=== PATIENT | male | born 1990 | race Caucasian/White ===

== ENCOUNTER 2018-02-20 15:09 | Inpatient (IN) | payer OTHER ==
[~2018-02-20] VITALS: Ht 172.7 cm; Wt 72.6 kg
--- NOTE | 2018-02-20 19:25 | NUR ---
INTAKE ASSESSMENT BP:140/87, HR:83, RR:18, SpO2: 96%, T:98.1 Pt is in stable condition and able to be admitted on the unit. Unit protocols regarding medications and vital signs every 4 hours were explained. Pt verbalized understanding. Will continue admission upon arrival on the unit.
[2018-02-20] MEDS ORDERED: LOPERAMIDE HCL 2 MG CAPSULE PO PRN ×2 (19:30)
[2018-02-20] MEDS ORDERED: ACETAMINOPHEN 325 MG TABLET PO PRN (19:30)
[2018-02-20] MEDS ORDERED: LORAZEPAM 1 MG TABLET PO PRN ×2 (19:30)
[2018-02-20] MEDS ORDERED: THIAMINE HCL 200 MG/2 ML VIAL IM ONE (19:30)
[2018-02-20] MEDS ORDERED: MAGNESIUM HYDROXIDE 30 ML LIQUID UDC PO PRN (19:30)
[2018-02-20] MEDS ORDERED: ONDANSETRON 4 MG/2 ML VIAL IM PRN (19:30)
[2018-02-20] MEDS ORDERED: MIRALAX 17 GM POWD.PACK PO PRN (19:30)
[2018-02-20] MEDS ORDERED: DICYCLOMINE HCL 20 MG TABLET PO PRN (19:30)
[2018-02-20] MEDS ORDERED: MAG HYDROX/AL HYDROX/SIMETH 30 ML LIQUID UDC PO PRN (19:30)
[2018-02-20] MEDS ORDERED: LORAZEPAM 2 MG/1 ML VIAL IM PRN (19:30)
[2018-02-20] MEDS ORDERED: CLONIDINE HCL 0.1 MG TABLET PO PRN (19:30)
[2018-02-20] MEDS ORDERED: ONDANSETRON ODT 4 MG TAB.RAPDIS SL PRN (19:30)
[2018-02-20 20:29] LABS: *AMPHETAMINE, URINE NEGATIVE (NEGATIVE); *BARBITURATE, URINE NEGATIVE (NEGATIVE); *CANNABINOID, URINE POSITIVE (NEGATIVE); *COCCAINE, URINE POSITIVE (NEGATIVE); *OPIATE, URINE NEGATIVE (NEGATIVE); *PHENCYCLIDINE SCREEN,URINE NEGATIVE (NEGATIVE)
[2018-02-20] MEDS ORDERED: LORAZEPAM 1 MG TABLET PO SCH (21:00)
--- NOTE | 2018-02-20 21:00 | NUR ---
ADMISSION NOTE Pt arrived ambulatory from [facility] to the third floor accompanied by a BRUSHING MACHINE OPERATOR at 1934. Pt is a 27 year old male admitted on 02/20/18 for ETOH withdrawal. Pt is full code with NKA. He reports a PMHx of anxiety. He denies any seizures. He reports smoking cigarettes daily, 1/2 pack for 10 years. He reports having a PCP by the name of Dr. Diana Riojas. He did not bring any home medications and denies taking home medications. This is his first time in treatment. He reports he is unable to recall a time of sobriety and reports " I go to work sober, then I just drink after work." He states he is here because " I'm drinking too much, I keep blacking out." He describes his current use as: 1. ETOH (vodka) 100mL daily for 7 years at this rate. Last dose: " a couple drinks " on 02/19/18. 2. Cocaine- intermittently for a " few years." Last dose: unable to recall 3. Marijuana- "few hits" daily for 7 years. Last dose: " few hits" on 02/19/18. He describes his withdrawal symptoms from ETOH as " anxiety, nausea, sweats" Upon assessment, pt is alert and oriented x4, speech is clear and audible. Pt noted with anxiety, agitation, irritability, flushed face, sweats, restlessness, and tingling of bilateral hands. Heart rate regular. Denies chest pain or SOB. PERRLA, breathing is even and unlabored, lung sounds clear. Abdomen is soft and non-distended. Bowel sounds present in all quadrants, last BM 02/20/18. Pt reports that BM is regular. Pt's skin is warm, dry and intact. MD aware of pt's admission. Pt oriented to room and unit. Safety measures in place. Will continue to monitor. Addendum: 02/21/18 at 0140 by OSKAR ROPER RN ERROR IN CHARTING. Pt uses 500 mL of vodka daily for 7 years.
[2018-02-20 21:02] LABS: BASOPHILS # (AUTO) 0.1 K/uL (0.0-8.0); BASOPHILS % (AUTO) 0.7 % (0.0-2.0); EOSINOPHILS # (AUTO) 0.1 K/uL (0.0-0.7); EOSINOPHILS % (AUTO) 0.9 % (0.0-7.0); HEMATOCRIT 45.6 % (36.7-47.1); HEMOGLOBIN 16.3 g/dL (12.5-16.3); LYMPHOCYTES # (AUTO) 2.3 K/uL (20.0-40.0); LYMPHOCYTES % (AUTO) 25.4 % (20.5-51.5); MEAN CORPUSCULAR HGB CONC 36 g/dL (32.5-36.3); MEAN CORPUSCULAR VOLUME 89.5 fL (73.0-96.2); MONOCYTES # (AUTO) 0.7 K/uL (2.0-10.0); MONOCYTES % (AUTO) 7.1 % (0.0-11.0); NEUTROPHILS # (AUTO) 6.1 K/uL (1.8-8.9); NEUTROPHILS % (AUTO) 65.9 % (38.5-71.5); PLATELET COUNT (AUTO) 194 K/uL (152-348); RED BLOOD CELL COUNT(AUTO) 5.09 MIL/uL (4.06-5.63); WHITE BLOOD COUNT (AUTO) 9.2 K/uL (3.6-10.2)
[2018-02-20 21:18] LABS: ETHANOL < 3 MG/DL (0-0)
[2018-02-20 21:21] LABS: ALANINE AMINOTRANSFERASE 101 U/L (16-63); ALKALINE PHOSPHATASE 66 U/L (50-136); AMYLASE 65 U/L (25-115); ASPARTATE AMINOTRANSFERASE 46 U/L (15-37); BILIRUBIN,TOTAL 0.5 mg/dL (0.2-1.0); CARBON DIOXIDE 28 mmol/L (21-32); CHLORIDE 101 mmol/L (98-107); CREATININE 0.9 mg/dL (0.6-1.3); GLUCOSE 115 mg/dL (74-106); POTASSIUM 3.6 mmol/L (3.5-5.1); TOTAL PROTEIN, SERUM 8.6 g/dL (6.4-8.2); UREA NITROGEN, BLOOD 12 mg/dL (7-18)
--- NOTE | 2018-02-20 21:29 | NUR ---
ONE TIME ATIVAN Pt received one time order of Ativan 2mg. Breathing even and unlabored, will monitor effectiveness.
[2018-02-20 21:33] LABS: THYROID STIMULATING HORMONE 5.915 mIU/mL (0.358-3.740)
--- NOTE | 2018-02-20 22:29 | NUR ---
REASSESSMENT One time medication effective. Pt is lying in bed with eyes closed and is asleep. Breathing even and unlabored, safety measures in place. Will continue to monitor.
[2018-02-21] VITALS: BP 105/58
--- NOTE | 2018-02-21 04:00 | NUR ---
VITALS REFUSED 0400 vitals refused. CIWA deferred d/t pt lying in bed with eyes closed noted to be asleep. Breathing even and unlabored. Safety measures in place. Will monitor.
--- NOTE | 2018-02-21 07:12 | NUR ---
END OF SHIFT Pt is a 27 year old male admitted on 02/20/18 for ETOH withdrawal. He remains alert and oriented x4. He is scheduled to start a 4 day Ativan taper today. He was noted with anxiety, irritability, agitation, restlessness and flushed face during the shift. He received a one time order of Ativan 2 mg. He slept a total of 7 hrs, Intake: 500 mL, Void: x1, BM:0, CIWA:8 at 2030. Breathing even and unlabored, safety measures in place. Endorsed to AM shift.
--- NOTE | 2018-02-21 07:28 | NUR ---
Start of Shift Notes: Received patient in his room. Awake, alert and verbally responsive. Appears anxious, affect is flat. Patient is a 27 year old male admitted for ETOH withdrawal who will be starting his 4-day Ativan taper in AM. He denies S/I or H/I noted. Denies AV hallucinations. Educated patient on his current plan of care for the day and his medication regimen. Encouraged oral fluid intake and encouraged group participation to learn new skills to prevent relapse. Slept for 7 hours. Last CIWA 8. Will continue to monitor.
[2018-02-21 08:00] VITALS: BP 127/87
[2018-02-21] MEDS: THIAMINE HCL 100 MG TABLET PO SCH (08:19)
[2018-02-21] MEDS: FOLIC ACID 1 MG TABLET PO SCH (08:19)
[2018-02-21] MEDS: MULTIVITAMINS,THERAPEUTIC TABLET PO SCH (08:19)
[2018-02-21] MEDS: IBUPROFEN 600 MG TABLET PO PRN ×2 (08:19→20:59)
--- NOTE | 2018-02-21 08:19 | NUR ---
Motrin 600 mg PO given: Patient noted with complain of 5/10 low back pain. Patient states "I might have pulled a muscle when I was laying down." Non-pharmacological interventions provided but ineffective. Medicated patient with Motrin 600 mg PO as ordered. Will monitor for effectiveness.
[2018-02-21] MEDS: LORAZEPAM 1 MG TABLET PO SCH ×3 (08:20→20:59)
[2018-02-21] MEDS ORDERED: TUBERCULIN,PURIF.PROT.DERIV. 5 TU/0.1 ML TEST ID ONE (09:00)
--- NOTE | 2018-02-21 09:19 | NUR ---
Re-assessment: Motrin patient verbalizes that PL is now 0/10. Motrin was effective in relieving back pain.
[2018-02-21 12:00] VITALS: BP 122/80
[2018-02-21 16:00] VITALS: BP 137/86
--- NOTE | 2018-02-21 19:03 | NUR ---
End of Shift Notes: Patient initiated his 4-day Ativan taper to manage withdrawal symptoms related to ETOH. VS monitored closely. No significant abnormalities noted. Withdrawal symptoms were closely monitored. Initial CIWA 14, patient presented with anxiety, agitation, gross tremors, fatigue and sweating. Medicated patient with Motrin 600 mg PO as ordered for low back pain with help after 1 hour. Last CIWA 12. Patient was compliant with care and treatment. Encouraged to rest and to increase oral fluid intake. All needs met and attended. Will continue to monitor closely.
--- NOTE | 2018-02-21 19:30 | NUR ---
START OF SHIFT Received 27 year old male patient admitted on 02/20/18 for ETOH withdrawal. Pt is alert and oriented x4. Pt noted to be anxious, restlessness, irritable, and agitated. He complains of anxiety and generalized body aches 6/10. He continues on a 4 day Ativan taper and tolerating well. Per endorsement, he received PRN Motrin. Last CIWA:12 at 1600. Breathing even and unlabored, safety measures in place. Will continue to monitor.
[2018-02-21 20:00] VITALS: BP 145/88
--- NOTE | 2018-02-21 20:59 | NUR ---
PRN MOTRIN Pt complains of generalized body aches 04/16. PRN Motrin administered as ordered. Will monitor effectiveness.
[2018-02-21] MEDS: diphenhydrAMINE 50 MG CAPSULE PO PRN (21:50)
--- NOTE | 2018-02-21 21:50 | NUR ---
PRN BENADRYL Pt complains of difficulty sleeping. PRN Benadryl administered as ordered. Safety measures in place. Will monitor effectiveness.
--- NOTE | 2018-02-21 21:59 | NUR ---
PRN REASSESSMENT Pt reports medication somewhat effective. Pt reports body aches decreased to 5/10. Will monitor.
--- NOTE | 2018-02-21 22:50 | NUR ---
PRN BENADRYL REASSESSMENT Medication effective. Pt is lying in bed with eyes closed noted to be asleep. Breathing is even and unlabored, safety measures in place. Will monitor.
--- NOTE | 2018-02-22 | NUR ---
VITALS REFUSED, CIWA DEFERRED Pt reports difficulty sleeping so 0000 vitals were refused. CIWA deferred d/t pt lying in bed with eyes closed and is asleep. Breathing even and unlabored, safety measures in place. Will monitor.
--- NOTE | 2018-02-22 04:00 | NUR ---
VITALS REFUSED, CIWA DEFERRED Pt reports difficulty sleeping and refused 0400 vitals. CIWA deferred d/t pt lying in bed with eyes closed and is asleep. Breathing even and unlabored, safety measures in place. Will continue to monitor.
--- NOTE | 2018-02-22 06:58 | NUR ---
END OF SHIFT Pt is a 27 year old male patient admitted on 02/20/18 for ETOH withdrawal. Pt remains alert and oriented x4. Pt was noted to be anxious, restlessness, irritable, and agitated. He had complaints of body aches and insomnia during the shift. He remains on a 4 day Ativan taper and tolerating well. At 2058 he received PRN Motrin, at 2149 he received PRN Benadryl. He slept a total of 7 hrs, Intake:1,950 mL, Void: x4, BM:0, CIWA:10 at 1999. Breathing even and unlabored, safety measures in place. Endorsed to AM shift.
[2018-02-22 07:06] LABS: HEPATITIS B SURFACE AG Negative (Negative)
--- NOTE | 2018-02-22 07:30 | NUR ---
Start of shift note; Received report from night nurse. Patient is a 27 year old male admitted on 02/20/18 for ETOH withdrawals. Patient was placed on Ativan taper. Patient is AOX4, appears anxious, agitated complaining of fatigue, irritability, hot and cold sweats. Educated patient regarding the importance of compliance to treatment and medication regime, verbalized understanding. Encouraged patient to participate in group therapy and activities. All safety measures secured. Will continue to monitor patient.
[2018-02-22 08:00] VITALS: BP 121/84
[2018-02-22] MEDS: FOLIC ACID 1 MG TABLET PO SCH (08:03)
[2018-02-22] MEDS: THIAMINE HCL 100 MG TABLET PO SCH (08:03)
[2018-02-22] MEDS: MULTIVITAMINS,THERAPEUTIC TABLET PO SCH (08:03)
[2018-02-22] MEDS ORDERED: LORAZEPAM 1 MG TABLET PO SCH ×2 (09:00→21:00)
[2018-02-22 12:00] VITALS: BP 124/77
[2018-02-22] MEDS: LORAZEPAM 1 MG TABLET PO SCH ×2 (12:19→16:31)
[2018-02-22 16:00] VITALS: BP 137/73
--- NOTE | 2018-02-22 18:48 | NUR ---
End of shift note; Patient is AOX4, presented with tremors, complaining of fatigue, muscle aches, agitation and anxiety . Patient remained compliant with treatment plan and medication regime. Medications were effective in reducing withdrawal symptoms. Patient's last CIWA score is 6 at 1600. No PRN medications given. Patient participated in group activities and therapies. All safety measures secured. Met all needs.
--- NOTE | 2018-02-22 19:40 | NUR ---
Start of Shift Note Received a 27 y/o male px, admitted for medically supervised withdrawal from ETOH, cocaine and Marijuana. Px is placed on 4 day Ativan taper started 02/21/2018. Px is tolerating well. Last reported CIWA 6 by AM shift nurse. During the rounds at 1940, px is awake sitting on the edge of the bed. Px appears disheveled, unshaven with halitosis. Soiled clothes and towel noted on the floor, seat and on top of cabinet. Unfinished snacks and drinks noted also on top of the bed side table. Px stated that his anxiety is 7/10 with H/A 4/10. Px verbalized "Can I have Motrin?" Bed in lowest position, side rails up 2x and call light within reach. We'll continue to monitor.
[2018-02-22 20:00] VITALS: BP 126/76
[2018-02-22] MEDS: GABAPENTIN 300 MG CAPSULE PO SCH (21:22)
[2018-02-22] MEDS: IBUPROFEN 600 MG TABLET PO PRN (21:22)
[2018-02-22] MEDS: diphenhydrAMINE 50 MG CAPSULE PO PRN (21:58)
--- NOTE | 2018-02-22 21:58 | NUR ---
PRN meds At 2121, px received Motrin 600 mg/tab, 1 tab PO for H/A of /10 and Benadryl 50 mg/cap, 1 cap PO for insomnia. We'll continue to monitor.
--- NOTE | 2018-02-22 23:00 | NUR ---
Reassessment of H/A Px stated that his H/A is already resolved, 0/10.
[2018-02-23] VITALS: BP 121/71
[2018-02-23 04:00] VITALS: BP 123/73
--- NOTE | 2018-02-23 07:12 | NUR ---
End of Shift Note During the shift at 2121, px received Motrin 600 mg PO for H/A of 02/14, it was effective. At 2157, Px received Benadryl 50 mg PO as PRN med for insomnia. Px slept for 7 hours. Px's oral intake is 800 ml, voided 2x with 2x BM. At 0630, px is asleep on bed in fowlers position. Bed in lowest position, side rails up 2x and call light within reach. We'll continue to monitor. Px endorsed to AM shift nurse
[2018-02-23 08:00] VITALS: BP 139/76
[2018-02-23] MEDS: ASPIRIN/ACETAMINOPHEN/CAFFEINE TABLET PO PRN (08:22)
[2018-02-23] MEDS: FOLIC ACID 1 MG TABLET PO SCH (08:22)
[2018-02-23] MEDS: GABAPENTIN 300 MG CAPSULE PO SCH ×2 (08:22→21:22)
[2018-02-23] MEDS: MULTIVITAMINS,THERAPEUTIC TABLET PO SCH (08:22)
[2018-02-23] MEDS: THIAMINE HCL 100 MG TABLET PO SCH (08:22)
--- NOTE | 2018-02-23 08:22 | NUR ---
PRN EXCEDRIN Patient complains of headache 5/10 pain. PRN Excedrin given. Will continue to monitor patient.
[2018-02-23] MEDS ORDERED: LORAZEPAM 1 MG TABLET PO SCH ×3 (09:00→21:00)
--- NOTE | 2018-02-23 09:21 | NUR ---
START OF SHIFT Received report from maintenance technician 3rd shift nurse. Patient is 27 year old male admitted for medically supervised withdrawal from alcohol. Patient is full code with NKA. Per maintenance technician 3rd shift report, PRN motrin (headache) and Benadryl were given. On assessment this AM: CIWA 7: Denies SOB, chest pain. Patients vitals signs: WNL. Patient noted anxious, reports headache, tremors noted. Compliant with AM meds. PRN Excedrin given for headache. Patient has steady gait. Frequently goes out for smoke break with supervision. Encouraged to attend group meetings today. Will continue to monitor patient.
--- NOTE | 2018-02-23 09:22 | NUR ---
REASSESSMENT PRN EXCEDRIN Patient reports headache decreased to 2/10.
--- NOTE | 2018-02-23 11:21 | NUR ---
PATIENT ENDORSEMENT Endorsed care of patient to DENVER Mathew. Hand-off report provided.
--- NOTE | 2018-02-23 11:22 | NUR ---
Assumed Care: Assumed care for the patient at this time. Patient is currently in group at this time. He is a 27 year old male admitted for ETOH withdrawal who was placed on a 4-day Ativan taper as ordered. All pertinent information discussed. Last CIWA 7 at 0800. PRN Excedrin given for migraine with help. All needs met and attended. Will continue to monitor closely.
[2018-02-23 12:00] VITALS: BP 127/75
[2018-02-23 16:00] VITALS: BP 128/83
--- NOTE | 2018-02-23 19:06 | NUR ---
End of Shift Notes: Patient continues to be on 4-day Ativan taper as ordered to manage withdrawal symptoms related to ETOH withdrawal. VS monitored closely. No significant abnormalities noted. Withdrawal symptoms were closely monitored. Initial CIWA 7, patient presented with fatigue, sweating, anxiety, agitation and fine tremors. Last CIWA 6. Per patient, Ativan has been effective in reducing his withdrawal symptoms. Calm and cooperative with staff and care. Participated in group and activities. All needs met and attended. Will continue to monitor closely.
--- NOTE | 2018-02-23 19:11 | NUR ---
Start of shift note Received report from day shift nurse. Pt is a 27 yo male, A+Ox4, presenting to [facility] for ETOH withdrawal. Pt noted to be anxious, agitated, having messy room, and restless. Pt has HX of Anxiety which will be monitored during shift. Pt is on 4 day Ativan taper, tolerated well. Respirations even and unlabored. Will continue to monitor.
[2018-02-23 20:15] VITALS: BP 146/87
[2018-02-23] MEDS: diphenhydrAMINE 50 MG CAPSULE PO PRN (23:37)
--- NOTE | 2018-02-23 23:37 | NUR ---
PRN Benadryl Pt c/o inability to sleep and requested for PRN Benadryl. Medication given and tolerated well. Will reassess within 1 HR. Will continue to monitor.
--- NOTE | 2018-02-24 00:30 | NUR ---
PRN Benadryl Reassessment Medication effective. Pt is resting well in bed. No s/s of ASE noted at this time. Respirations even and unlabored. Will continue to monitor.
[2018-02-24 00:44] VITALS: BP 134/76
[2018-02-24 04:10] VITALS: BP 129/78
--- NOTE | 2018-02-24 06:56 | NUR ---
End of shift note Pt was continuously noted with restlessness, anxiety, and agitation. Pt remained in room for majority of shift except to get food from kitchen, to go smoke on smoking patio, and to interact with other patients in recreational room. Pt was given PRN Blake @1307. Pt slept for a total of 7 HRS. Last CIWA: 9 @0400. Respirations even and unlabored. Will endorse to day shift nurse.
--- NOTE | 2018-02-24 07:26 | NUR ---
START OF SHIFT Received report from night nurse. Patient continues to be on 4-day Ativan taper as ordered to manage withdrawal symptoms related to ETOH withdrawal. VS were monitored closely. No significant abnormalities noted. Withdrawal symptoms were closely monitored. Patient presented with flush face, red eyes, sweating, anxiety, agitation, and fine tremors. Last CIWA 9 @ 0400. Per patient, Ativan has been effective in reducing his withdrawal symptoms. Patient is cooperative with staff and care. PRN Blake was given @ 2330. Pt. slept for 7 hrs. All needs met and attended. Will continue to monitor closely.
[2018-02-24 08:00] VITALS: BP 109/79
[2018-02-24] MEDS: GABAPENTIN 300 MG CAPSULE PO SCH ×3 (08:41→22:25)
[2018-02-24] MEDS: LORAZEPAM 1 MG TABLET PO SCH ×3 (08:41→22:25)
[2018-02-24] MEDS: THIAMINE HCL 100 MG TABLET PO SCH (08:41)
[2018-02-24] MEDS: MULTIVITAMINS,THERAPEUTIC TABLET PO SCH (08:41)
[2018-02-24] MEDS: FOLIC ACID 1 MG TABLET PO SCH (08:41)
[2018-02-24] MEDS ORDERED: LORAZEPAM 1 MG TABLET PO SCH (09:00)
[2018-02-24 12:00] VITALS: BP 103/65
[2018-02-24 16:00] VITALS: BP 128/79
--- NOTE | 2018-02-24 19:02 | NUR ---
END OF SHIFT NOTE Endorsed patient to oncoming nurse. Pt. is his room. Pt. is a/o to person, place, time, and situation. Pt presented with anxious mood, flushed face, red eyes, sweating, and pt. was minimizing reported symptoms. Patient was compliant with group therapy sessions. Pt.s TB test was read as negative. No PRN medications were given this shift. Pt.s fluid intake was 2800 Ml. Pt voided 6 times and had 2 BMS. Last CIWA 8 @1600. Call light was within reach and bed at low position. Pt. will continue to be monitored and needs met.
--- NOTE | 2018-02-24 19:15 | NUR ---
Start of shift note Received report from day shift nurse. Pt is a 27 yo male, A+Ox4, presenting to [facility] for ETOH withdrawal. Pt noted to be agitated, restless, anxious, and having messy room. Pt has HX of Anxiety which will be monitored during shift. Pt is on 4 day Ativan taper, tolerated well. Respirations even and unlabored. Will continue to monitor.
[2018-02-24] MEDS ORDERED: GABA-534 PO (20:07)
[2018-02-24] MEDS ORDERED: CLON0.1T14 PO (20:07)
[2018-02-24] MEDS ORDERED: IBUP-1955 PO (20:07)
[2018-02-24] MEDS ORDERED: DIPH50CA37 PO (20:07)
[2018-02-24 20:34] VITALS: BP 136/95
[2018-02-24] MEDS: diphenhydrAMINE 50 MG CAPSULE PO PRN (22:25)
--- NOTE | 2018-02-24 22:25 | NUR ---
PRN Benadryl Pt c/o inability to sleep and requested for PRN Benadryl. Medication given and tolerated well. Will reassess within 1 HR. Will continue to monitor.
[2018-02-25 00:34] VITALS: BP 124/87
[2018-02-25 04:30] VITALS: BP 128/82
--- NOTE | 2018-02-25 06:58 | NUR ---
End of shift note Pt was continuously noted with agitation, restlessness, and anxiety. Pt remained in room for majority of shift except to go smoke on smoking patio, to get food from kitchen, and to interact with other patients in recreational room. Pt was given PRN Lorenal @2225. Pt slept for a total of 9 HRS. Last CIWA: 8 @0400. Respirations even and unlabored. Will endorse to day shift nurse.
--- NOTE | 2018-02-25 07:30 | NUR ---
START OF SHIFT Pt is a 27 yr old male, AA&Ox4. Pt was admitted on 02/20/18 for ETOH withdrawal and is on a 5 day Ativan taper as ordered. Medication eligio well. Received report from awake overnight monitor nurse. Pt received Benadryl PRN for sleep, medication was effective. Pt slept for 9 hrs. Last CIWA score was 8 at 0400. pt is currently c/o anxiety and sweats. Pt is noted with flat affect. Pt is continuously going down to the smoking patio to smoke. Skin is intact, warm and moist to touch. Safety precautions observed. Call light is within reach. Will continue to monitor.
[2018-02-25 08:08] VITALS: BP 146/86
[2018-02-25] MEDS: MULTIVITAMINS,THERAPEUTIC TABLET PO SCH (08:43)
[2018-02-25] MEDS: FOLIC ACID 1 MG TABLET PO SCH (08:43)
[2018-02-25] MEDS: GABAPENTIN 300 MG CAPSULE PO SCH ×2 (08:43→14:11)
[2018-02-25] MEDS: THIAMINE HCL 100 MG TABLET PO SCH (08:43)
[2018-02-25] MEDS ORDERED: LORAZEPAM 1 MG TABLET PO SCH (09:00)
[2018-02-25] MEDS ORDERED: HYDROXYZINE PAMOATE 25 MG CAPSULE PO PRN (11:30)
[2018-02-25 12:00] VITALS: BP 119/76
[2018-02-25 16:00] VITALS: BP 140/64
--- NOTE | 2018-02-25 19:10 | NUR ---
Start of Shift Patient Received. Patient is in the activities room participating in a group meeting. Per endorsement, patient has completed a Modified Ativan taper and is set for discharge tomorrow 02/26/18. No PRN medications administered. Patient was noted to be compliant with plan of care, group meetings, and social activities. Last noted CIWA 8. All needs attended to promptly. Will continue plan of care as ordered.
--- NOTE | 2018-02-25 19:10 | NUR ---
END OF SHIFT Pt is a 27 yr old male, AA&Ox4. Pt was admitted on 02/20/18 for ETOH withdrawal and has completed a 5 day Ativan taper as ordered; medication eligio well. Pt has been cooperative with medication regimen and plan of care. Pt attended group therapy. Pt c/o anxiety and muscle aches and headache. Pt was offered Motrin PRN as ordered but pt refused to take. Skin is intact, warm and moist to touch. Pt was encouraged increase fluid intake. Pt is to be discharged tomorrow on 02/26/18. Last CIWA score was 8 at 1600. Safety precautions observed. Call light is within reach
[2018-02-25 20:39] VITALS: BP 141/88
[2018-02-25] MEDS: CLONIDINE HCL 0.1 MG TABLET PO SCH (20:41)
[2018-02-25] MEDS: diphenhydrAMINE 50 MG CAPSULE PO PRN (20:41)
--- NOTE | 2018-02-25 20:43 | NUR ---
PRN Medication Administration Patient is noted verbalizing inability of falling asleep. Patient states "I'm really restless and having trouble falling asleep." PRN Benadryl administered with routine medications. Will continue to monitor.
[2018-02-25] MEDS ORDERED: GABAPENTIN 300 MG CAPSULE PO SCH (21:00)
--- NOTE | 2018-02-25 21:30 | NUR ---
PRN Medication Reassessment Patient is noted in bed sleeping. Breathing even and non labored. No signs of restlessness or discomfort noted. PRN Benadryl noted to be effective. Will continue to monitor.
[2018-02-26 00:43] VITALS: BP 119/73
[2018-02-26 04:20] VITALS: BP 114/79
--- NOTE | 2018-02-26 07:12 | NUR ---
End of Shift Patient is noted in bed sleeping. Breathing even and non labored. He has completed a modified Ativan taper and is set for discharge today 02/26/18. He received PRN Benadryl for inability of falling asleep with medication noted to be effective. Last noted CIWA 9. Patient was noted to sleep a total of 7 hours. All needs attended to promptly. Will endorse continue plan of care as ordered.
--- NOTE | 2018-02-26 07:30 | NUR ---
START OF SHIFT Pt is a 27 yr old male, AA&Ox4. Pt was admitted on 02/20/18 for ETOH withdrawal and has completed a 5 day Ativan taper as ordered. Medication eligio well. Received report from material handler 2nd shift nurse. Pt received Benadryl PRN for sleep, medication was effective. Pt slept for 8 hrs. Last CIWA score was 9 during the night. Pt is currently noted with increase anxiety and agitation this morning m/b pacing around the unit. Pt was agitated due to not being able to smoke at this time due to shift change. Pt is noted with flat affect and blunt. Pt is to be discharged today. Will continue to f/u. Safety precautions observed. Call light is within reach.
[2018-02-26 08:06] VITALS: BP 143/89
[2018-02-26 08:27] VITALS: BP 143/89
[2018-02-26] MEDS: THIAMINE HCL 100 MG TABLET PO SCH (08:27)
[2018-02-26] MEDS: MULTIVITAMINS,THERAPEUTIC TABLET PO SCH (08:27)
[2018-02-26] MEDS: ASPIRIN/ACETAMINOPHEN/CAFFEINE TABLET PO PRN (08:27)
[2018-02-26] MEDS: GABAPENTIN 300 MG CAPSULE PO SCH (08:27)
[2018-02-26] MEDS: CLONIDINE HCL 0.1 MG TABLET PO SCH (08:27)
[2018-02-26] MEDS: FOLIC ACID 1 MG TABLET PO SCH (08:27)
--- NOTE | 2018-02-26 09:30 | NUR ---
DISCHARGED NOTE Pt is a 27 yr old male, AA&Ox4. Pt was admitted on 02/20/18 for ETOH withdrawal and has completed a 5 day Ativan taper as ordered. Medication eligio well. Pt has been cooperative with medication regimen and plan of care. Pt attended group therapy during his stay. Pt was noted with anxiety due to discharge but states of being ready to go to continue with treatment. Pt was educated on discharge summary and prescription. Pt was able to verbalize understanding. Last CIWA score was 8 at 0800. Pt was discharged off the unit at 0920 in stable condition. Pt left the unit with all belongings and valuables. No home medication was brought.
== END 2018-02-26 09:20 | disposition other institution (70) | DRG 895 ==
LOC: SRC 18:39
PROVIDERS: ADMIT Internal Medicine; ATTEND Internal Medicine
PROC: HZ2ZZZZ Detoxification Services for Substance Abuse Treatment (ICD-10-PCS; principal; 2018-02-20)
PROC: HZ41ZZZ Group Counseling for Substance Abuse Treatment, Behavioral (ICD-10-PCS; 2018-02-21)
DX: F10.232 Alcohol dependence with withdrawal with perceptual disturbance (principal); K70.10 Alcoholic hepatitis without ascites; I15.9 Secondary hypertension, unspecified; E07.81 Sick-euthyroid syndrome; F12.10 Cannabis abuse, uncomplicated; F14.10 Cocaine abuse, uncomplicated; Y90.9 Presence of alcohol in blood, level not specified; Z81.1 Family history of alcohol abuse and dependence
CPT/HCPCS: 36415; 70030-TC; 80307; 80349; 80353; 83735; 84443; 85025; 86580; 86592; 86705; 86803; 87340; 87806; A4663; A9150; G0480; J3411; Q0163